=== PATIENT | born 1985 | race Caucasian/White ===

== ENCOUNTER 2017-10-12 02:31 | Emergency (ER) | payer SELFPAY ==
[2017-10-12 02:38] VITALS: TEMP 97.5; O2SAT 98
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
[2017-10-12] MEDS ORDERED: IBUPROFEN 600 MG TAB PO ONE (03:37)
[2017-10-12] MEDS ORDERED: AZITHROMYCIN 250 MG TAB PO ONE (03:37)
[2017-10-12 05:47] VITALS: BP 122/71; PULSE 87; RESP 19
== END 2017-10-12 05:00 | disposition home or self-care (01) ==
LOC: EDSEX → EEVIPCON 02:31
DX: T74.21XA Adult sexual abuse, confirmed, initial encounter (principal); F17.200 Nicotine dependence, unspecified, uncomplicated; Z91.040 Latex allergy status
CPT/HCPCS: J0696

== ENCOUNTER 2017-10-12 16:50 | Emergency (ER) | payer SELFPAY ==
--- NOTE | 2017-10-12 16:57 | EDPHY ---
Addendum entered and electronically signed by Petros Esteban MD 10/14/17 09:13 : This patient was further evaluated by the psychiatric team and placement has been found at [facility] in the [facility] unit she has been accepted by Dr. Caden Mustafa. Appropriate transfer paperwork has been filled out Original Note: H & P - Medical/Surgical History Hx Asthma: No Hx Chronic Respiratory Disease: No Hx Diabetes: No Hx Cardiac Disease: No Hx Renal Disease: No Hx Cirrhosis: No Hx Alcoholism: No Hx HIV/AIDS: No Hx Splenectomy or Spleen Trauma: No Other PMH: DEPRESSION, NARCOLEPSY, ADHD, GENDER FLUID - Social History Smoking Status: Light smoker Time Seen by Provider: 10/12/17 16:56 Constitutional: Initial Vital Signs Heart Rate 118 10/12/17 16:50 Respiratory Rate 22 10/12/17 16:50 Blood Pressure 140/101 10/12/17 16:50 O2 Sat (%) 99 10/12/17 16:50 O2 Delivery Mode Room Air Allergies/Adverse Reactions: acetaminophen [From Percocet] Allergy (Verified 10/12/17 17:46) amoxicillin [From Augmentin] Allergy (Verified 10/12/17 17:46) aripiprazole [From Abilify] Allergy (Verified 10/12/17 17:46) asenapine [From Saphris] Allergy (Verified 10/12/17 17:46) bupropion [From Wellbutrin] Allergy (Verified 10/12/17 17:46) buspirone Allergy (Verified 10/12/17 17:46) carbamazepine [From Tegretol] Allergy (Verified 10/12/17 17:46) chlordiazepoxide [From Librium] Allergy (Verified 10/12/17 17:46) chlorpromazine [From Thorazine] Allergy (Verified 10/12/17 17:46) citalopram [From Celexa] Allergy (Verified 10/12/17 17:46) clavulanic acid [From Augmentin] Allergy (Verified 10/12/17 17:46) divalproex sodium [From Depakote] Allergy (Verified 10/12/17 17:46) duloxetine [From Cymbalta] Allergy (Verified 10/12/17 17:46) escitalopram [From Lexapro] Allergy (Verified 10/12/17 17:46) gluten Allergy (Verified 10/12/17 17:46) haloperidol [From Haldol] Allergy (Verified 10/12/17 17:46) lamotrigine [From Lamictal] Allergy (Verified 10/12/17 17:46) latex Allergy (Verified 10/12/17 03:12) lorazepam [From Ativan] Allergy (Verified 10/12/17 17:46) lurasidone [From Latuda] Allergy (Verified 10/12/17 17:46) morphine Allergy (Verified 10/12/17 17:46) olanzapine Allergy (Verified 10/12/17 17:46) Opioids-Meperidine and Related Allergy (Verified 10/12/17 03:12) oxcarbazepine [From Trileptal] Allergy (Verified 10/12/17 17:46) oxycodone [From Percocet] Allergy (Verified 10/12/17 17:46) paroxetine [From Paxil] Allergy (Verified 10/12/17 17:46) quetiapine [From Seroquel] Allergy (Verified 10/12/17 17:46) risperidone Allergy (Verified 10/12/17 17:46) sertraline [From Zoloft] Allergy (Verified 10/12/17 17:46) venlafaxine [From Effexor] Allergy (Verified 10/12/17 17:46) ziprasidone [From Geodon] Allergy (Verified 10/12/17 17:46) Home Medications: Medication Instructions Recorded Atomoxetine HCl [Strattera] 40 mg PO DAILY 10/12/17 clonIDINE [Catapres (*)] 0.1 mg PO BID 10/12/17 rOPINIRole HCL [Requip] 0.75 mg PO HS 10/12/17 Cyclobenzaprine [Flexeril 10 MG 10 mg PO BID 10/14/17 (*)] Cyclobenzaprine [Flexeril 10 MG 10 mg PO DAILY@16 PRN 10/14/17 (*)] Herbals/Supplements -Info Only 1 ea PO DAILY 10/14/17 Metoprolol Succinate Xr [Toprol Xl 25 mg PO DAILY 10/14/17 25 mg (*)] Medical Decision Making ED Course/Re-evaluation: CHIEF COMPLAINT: At outpatient mental health asking for food, mcfp, meds. HISTORY OF PRESENT ILLNESS: This patient presented to outpatient mental health. She has a long known history of bipolar disorder. She is off her meds. They thought that she was acting fairly psychotic and gravely disabled and put her on an M1 hold and called the ambulance who brought her here. The patient is not forthcoming with any information except she is allergic to everything and does not want any injections. REVIEW OF SYSTEMS: A 10 point review of systems was performed however the patient will not answer questions PHYSICAL EXAM: General Appearance: Alert, well hydrated, appropriate, and non-toxic appearing. Head: Atraumatic without scalp tenderness or obvious injury Eyes: Pupils equal, round, reactive to light and accommodation, EOMI, no trauma , no injection. Ears: Clear bilaterally, no perforation, normal landmarks Nose: Atraumatic, no rhinorrhea, clear. Throat: There is no erythema or exudates, no lesions, normal tonsils, mucus membranes moist. Neck: Supple, 2+ carotid upstroke, nontender, no lymphadenopathy. Respiratory: No retractions, no distress, no wheezes, and no accessory muscle use. Lungs are clear to auscultation bilaterally. Cardiovascular: Regular rate and rhythm, no murmurs, rubs, or gallops. Bilateral carotid, radial, dorsalis pedis, and posterior tibial pulses intact. Good capillary refill all extremities. Gastrointestinal: Abdomen is soft, nontender, non-distended, no masses, no rebound, no guarding, no peritoneal signs. Musculoskeletal: Normal active ROM of all extremities, atraumatic. Neurological: Alert, appropriate, and interactive. The patient has normal DTRs and non-focal cranial nerves, motor, sensory, and cerebellar exam. Skin: No rashes, good turgor, no nodules on palpation. Past medical history: Psychiatric disease Past surgical history: Noncontributory Family history: Noncontributory Social history: Single, not employed, will not volunteer any other information DIFFERENTIAL DIAGNOSIS: The differential diagnosis for the patient's depression included but was not limited to functional and major depression, situational depression, medication side effect, drugs, and alcohol abuse. MEDICAL DECISION MAKING: Patient is in no acute distress and is hemodynamically stable. We are awaiting psychiatric team's evaluation. Patient has known history of psychiatric disorders and is here for evaluation. "I have a list of medications I'm allergic to" "I cannot take antipsychotics. They make me worse." She states she takes "Metoprolol. Clonidine. Flexeril. Requip." Patient starts crying when I offered her her regular medications and states she is very relieved. The patient is very scared of hospitals and specifically of [place] doctors. She denies Ativan or Xanax. She accepts Klonopin. 0.75mg Requip. 0.1 Clonidine BID. 25mg metoprolol. 40mg Strattera. Flexeril BID. 17:12 Patient placed on detainer. M1 hold is not valid as it uses her preferred name rather than legal name. Administered. 1mg PO Klonopin. 0.75mg PO Requip. 25mg PO Strattera. 0.1mg PO Clonidine. 10mg PO Flexeril. (Petros Esteban) Care was signed over to [facility] 3:00 p.m.. Patient is stable 5:00 p.m. patient is getting slightly agitated. She is given her daily meds which have so far not been given but were given yesterday. Patient seen by me again at 10:15 p.m.. She is stable. No complaints. (Kailash Fields) 10/13 6:30 a.m.- Patient has remained stable throughout my shift sleeping for most of it. She was unable to provide a urine sample. She is awaiting mental health evaluation. The case will be signed out to the oncoming provider Dr. Mcarthur. 10/14 6:30 a.m.- The patient has been stable during my shift once again. She is currently awaiting placement. At 7:00 a.m., I anticipate the case will be signed out to the oncoming provider Dr. Mcarthur. (Julia Niño) 7:00 a.m. Patient's care has been transferred to ok. On my evaluation she is sleeping comfortably with stable vital signs. We will continue to observe. We are awaiting urinalysis and psychiatric evaluation. 3:00 p.m. We continue to await evaluation. Care transferred to Dr. Kailash Fields. (Lewis Mcarthur) Care Turn Over: Dr. Niño at 2230 (Kailash Fields) - Data Points Laboratory Results: Laboratory Results 10/12/17 17:35 10/12/17 17:35 Medications Given: Discontinued Medications Atomoxetine HCl (Strattera) 25 mg PO EDNOW ONE Stop: 10/13/17 17:14 Last Admin: 10/12/17 17:37 Dose: 25 mg Atomoxetine HCl (Strattera) 25 mg PO EDNOW ONE Stop: 10/13/17 17:31 Last Admin: 10/13/17 17:22 Dose: 25 mg Clonazepam (Klonopin) 1 mg PO EDNOW ONE Stop: 10/12/17 17:15 Last Admin: 10/12/17 17:22 Dose: 1 mg Clonazepam (Klonopin) 1 mg PO EDNOW ONE Stop: 10/13/17 17:05 Last Admin: 10/13/17 17:12 Dose: 1 mg Clonidine (Catapres) 0.1 mg PO EDNOW ONE Stop: 10/12/17 17:15 Last Admin: 10/12/17 17:21 Dose: 0.1 mg Clonidine (Catapres) 0.1 mg PO EDNOW ONE Stop: 10/13/17 17:05 Last Admin: 10/13/17 17:12 Dose: 0.1 mg Cyclobenzaprine HCl (Flexeril) 10 mg PO EDNOW ONE Stop: 10/12/17 17:16 Last Admin: 10/12/17 17:22 Dose: 10 mg Cyclobenzaprine HCl (Flexeril) 10 mg PO EDNOW ONE Stop: 10/13/17 17:05 Last Admin: 10/13/17 17:12 Dose: 10 mg Metoprolol Succinate (Toprol Xl) 25 mg PO EDNOW ONE Stop: 10/12/17 17:16 Last Admin: 10/12/17 17:21 Dose: 25 mg Metoprolol Succinate (Toprol Xl) 25 mg PO EDNOW ONE Stop: 10/13/17 17:06 Last Admin: 10/13/17 17:12 Dose: 25 mg Ropinirole HCl (Requip) 1 mg PO EDNOW ONE Stop: 10/12/17 17:14 Last Admin: 10/12/17 17:37 Dose: 1 mg Ropinirole HCl (Requip) 1 mg PO EDNOW ONE Stop: 10/13/17 17:07 Last Admin: 10/13/17 17:22 Dose: 1 mg Departure - Departure Disposition: Other Psych, Not [facility] Clinical Impression: Bipolar 1 disorder Condition: Good Referrals: Patient,NotPresent [Unknown] - As per Instructions
[2017-10-12] MEDS ORDERED: clonazePAM 1 MG TAB PO ONE (17:14)
[2017-10-12] MEDS ORDERED: CYCLOBENZAPRINE 10 MG TAB PO ONE (17:15)
[2017-10-12] MEDS ORDERED: METOPROLOL SUCCINATE XR 25 MG TAB PO ONE (17:15)
[2017-10-12 17:55] LABS: PLATELET COUNT 213 10^3/uL (150-400)
[2017-10-13] MEDS ORDERED: CYCLOBENZAPRINE 10 MG TAB PO ONE (17:04)
[2017-10-13] MEDS ORDERED: clonazePAM 1 MG TAB PO ONE (17:04)
[2017-10-13] MEDS ORDERED: METOPROLOL SUCCINATE XR 25 MG TAB PO ONE (17:05)
[2017-10-13] MEDS ORDERED: ATOMOXETINE 25 MG CAP PO ONE ×2 (17:13→17:30)
[2017-10-13] MEDS ORDERED: ATOMOXETINE 25 MG CAP PO SCH (17:15)
[2017-10-14 07:46] VITALS: BP 120/84; PULSE 100; RESP 18; TEMP 98.4; O2SAT 97
== END 2017-10-14 10:30 ==
LOC: EDUNIT# → EDSEX 16:50
DX: F31.9 Bipolar disorder, unspecified (principal); F17.200 Nicotine dependence, unspecified, uncomplicated; Z91.040 Latex allergy status
CPT/HCPCS: 80305; G0480